=== PATIENT | female | born 1935 | race Asian ===

== ENCOUNTER 2024-06-25 10:27 | Inpatient (IN) | payer MEDICARE, MEDICAID ==
[~2024-06-25] VITALS: Ht 147.3 cm; Wt 45.2 kg
[2024-06-25 11:39] LABS: ALANINE AMINOTRANSFERASE 13 U/L (12-78); ALBUMIN 3.1 G/DL (3.4-5.0); ALBUMIN/GLOBULIN RATIO 0.7 (1.1-1.5); ALKALINE PHOSPHATASE 85 IU/L (46-116); ANION GAP 16 (8-16); ASPARTATE AMINO TRANSFERASE 11 U/L (10-37); BILIRUBIN,TOTAL 0.3 MG/DL (0.1-1.0); BLOOD UREA NITROGEN 78 MG/DL (7-18); BUN/CREATININE RATIO 13.1 (10.0-20.0); CALCIUM 6.5 MG/DL (8.5-10.1); CHLORIDE 104 MMOL/L (99-107); CREATININE 5.95 MG/DL (0.40-0.90); GLUCOSE 172 MG/DL (70-104); POTASSIUM 5.1 MMOL/L (3.5-5.1); SODIUM 136 MMOL/L (135-145); TOTAL CARBON DIOXIDE 16.1 MMOL/L (24-32); TOTAL PROTEIN 7.6 G/DL (6.4-8.2); eCRCL 4 ML/MIN; eGFR 7 ML/MIN
[2024-06-25 11:40] LABS: BASOPHILS % (AUTO) 0.6 % (0-1); EOSINOPHILS # (AUTO) 0.1 X10'3 (0-0.9); HEMOGLOBIN 7.2 g/dl (12.0-16.0); LYMPHOCYTES # (AUTO) 0.8 X10'3 (1.1-4.8); LYMPHOCYTES % (AUTO) 16.7 % (21-51); MEAN CORPUSCULAR HEMOGLOBIN 30.7 PG (27.0-31.0); MEAN CORPUSCULAR HGB CONC 34.7 g/dL (33.0-36.5); MEAN CORPUSCULAR VOLUME 88.5 FL (78-98); MEAN PLATELET VOLUME 8.2 FL (7.4-10.4); MONOCYTES # (AUTO) 0.3 X10'3 (0-0.9); MONOCYTES % (AUTO) 5.7 % (2-12); NEUTROPHILS # (AUTO) 3.7 X10'3 (1.8-7.7); PLATELET COUNT 169 X10'3 (140-440); RED BLOOD COUNT 2.35 X10'6 (4.20-5.60); RED CELL DISTRIBUTION WIDTH 13.1 % (11.5-14.5); WHITE BLOOD COUNT 4.9 X10'3 (4.5-11.0)
[2024-06-25 11:42] LABS: HEMATOCRIT 20.8 % (35.0-45.0)
[2024-06-25 11:56] LABS: BILIRUBIN,URINE NEGATIVE (Neg); CLARITY,URINE CLEAR (Clear); COLOR,URINE YELLOW (Yellow); GLUCOSE, URINE 100 mg/dl (Neg); KETONES,URINE NEGATIVE (Neg); LEUKOCYTE ESTERASE ,URINE NEGATIVE (Neg); NITRITES, URINE NEGATIVE (Neg); OCCULT BLOOD,URINE TRACE-INTACT (Neg); PROTEIN,URINE >=300 mg/dl (Neg); UROBILINOGEN,URINE 0.2 E.U/dL (0.2-1.0)
[2024-06-25 11:59] LABS: UA COLLECTION TYPE OTHER
[2024-06-25 12:15] LABS: BACTERIA,URINE FEW /HPF (Neg); RBC,URINE 0-2 /HPF (0-2); SQUAMOUS EPITHELIAL CELL,UR FEW /LPF (FEW); WBC,URINE 0-4 /HPF (0-4)
[2024-06-25] MEDS ORDERED: magnesium sulf-water 2g/50mL 50 ML IV PRN (14:15)
[2024-06-25] MEDS ORDERED: magnesium sulf-water 4G/100mL 100 ML IV PRN (14:15)
[2024-06-25] MEDS ORDERED: acetaminophen 325mg tablet PO PRN (14:15)
[2024-06-25] MEDS ORDERED: potassium Cl 40MEQ/1/2NS 520ml 520 ML IV PRN (14:15)
[2024-06-25] MEDS ORDERED: potassium Cl 20 mEq SR tablet PO PRN ×2 (14:15)
[2024-06-25 14:42] LABS: HEMOGLOBIN A1C 5.7 % (4.5-6.2)
[2024-06-25 15:45] LABS: PRO BRAIN NATRIURETIC PEPTIDE 1695 PG/ML (0-450)
[2024-06-25] MEDS ORDERED: dextrose 50%-water 50ml dispensing syringe IV PRN ×2 (15:55)
[2024-06-25] MEDS ORDERED: DEXTROSE 15 GM of carb/4 tabs (each vial/BOTTLE has 4 tablets) PO PRN ×2 (15:55)
[2024-06-25] MEDS ORDERED: glucagon, human recombinant 1mg kit SUBCUT PRN (15:55)
[2024-06-25] MEDS: normal saline 1000ml 1,000 ML IV ONE ×2 (15:57→17:21)
[2024-06-25] MEDS ORDERED: PRED5DRO23 INSTILL (16:34)
[2024-06-25] MEDS ORDERED: AMLO5TAB16 PO (16:34)
[2024-06-25] MEDS ORDERED: SODI650T29 PO (16:41)
[2024-06-25] MEDS: INSULIN LISPRO 100 UNIT/ML INSULN.PEN MULTI-DOSE SQ SCH (17:00)
[2024-06-25] MEDS: normal saline 1000ml 1,000 ML IV SCH (17:09)
[2024-06-25] MEDS: amLODIPine 5mg tablet PO ONE (17:19)
[2024-06-25 18:40] LABS: HEMOGLOBIN 7.4 g/dl (12.0-16.0); MEAN CORPUSCULAR HEMOGLOBIN 30.4 PG (27.0-31.0); MEAN CORPUSCULAR HGB CONC 33.8 g/dL (33.0-36.5); MEAN CORPUSCULAR VOLUME 89.8 FL (78-98); MEAN PLATELET VOLUME 7.9 FL (7.4-10.4); PLATELET COUNT 170 X10'3 (140-440); RED BLOOD COUNT 2.45 X10'6 (4.20-5.60)
[2024-06-25 18:47] LABS: ANION GAP 15 (8-16); BLOOD UREA NITROGEN 72 MG/DL (7-18); BUN/CREATININE RATIO 13.5 (10.0-20.0); CALCIUM 6.1 MG/DL (8.5-10.1); CHLORIDE 109 MMOL/L (99-107); CREATININE 5.34 MG/DL (0.40-0.90); GLUCOSE 97 MG/DL (70-104); POTASSIUM 4.7 MMOL/L (3.5-5.1); SODIUM 139 MMOL/L (135-145); TOTAL CARBON DIOXIDE 15.3 MMOL/L (24-32); eCRCL 5 ML/MIN; eGFR 8 ML/MIN
[2024-06-25] MEDS: K and/or MAG REPLACEMENT MC SCH (20:00)
[2024-06-25] MEDS: docusate sod 100mg capsule PO SCH (20:00)
[2024-06-25 21:15] VITALS: BP 163/62; PULSE 92; RESP 15; TEMP 98.7; O2SAT 98
[2024-06-25] MEDS: sodium bicarbonate 650mg tablet PO SCH (22:02)
[2024-06-25] MEDS: prednisoLONE acetate 1% ophth susp 5ml EACHEYE SCH (22:47)
[2024-06-25 23:11] LABS: TOTAL PROTEIN,URINE RANDOM 195.5 MG/DL
[2024-06-26] VITALS (16 sets, daily range): BP systolic 138–176; BP diastolic 47–83; PULSE 68–87; RESP 16–18; TEMP 97.8–98.3; O2SAT 97–99
[2024-06-26 06:30] LABS: BASOPHILS % (AUTO) 0.6 % (0-1); EOSINOPHILS # (AUTO) 0.1 X10'3 (0-0.9); EOSINOPHILS % (AUTO) 2.6 % (0-6); LYMPHOCYTES # (AUTO) 1.3 X10'3 (1.1-4.8); LYMPHOCYTES % (AUTO) 27.7 % (21-51); MEAN CORPUSCULAR HGB CONC 33.9 g/dL (33.0-36.5); MEAN CORPUSCULAR VOLUME 88.6 FL (78-98); MEAN PLATELET VOLUME 8.2 FL (7.4-10.4); MONOCYTES # (AUTO) 0.4 X10'3 (0-0.9); MONOCYTES % (AUTO) 7.9 % (2-12); NEUTROPHILS # (AUTO) 2.9 X10'3 (1.8-7.7); NEUTROPHILS % (AUTO) 61.2 % (42-75); PLATELET COUNT 162 X10'3 (140-440); RED BLOOD COUNT 2.25 X10'6 (4.20-5.60); RED CELL DISTRIBUTION WIDTH 13.3 % (11.5-14.5); WHITE BLOOD COUNT 4.8 X10'3 (4.5-11.0)
[2024-06-26 06:40] LABS: HEMOGLOBIN 6.8 g/dl (12.0-16.0)
[2024-06-26 06:52] LABS: % IRON SATURATION 29 % (11-46); IRON 50 UG/DL (49-151); TOTAL IRON BINDING CAPACITY 173 UG/DL (259-388)
[2024-06-26 06:55] LABS: ALBUMIN 2.7 G/DL (3.4-5.0); ANION GAP 14 (8-16); BLOOD UREA NITROGEN 68 MG/DL (7-18); BUN/CREATININE RATIO 12.3 (10.0-20.0); CHLORIDE 113 MMOL/L (99-107); CREATININE 5.55 MG/DL (0.40-0.90); FERRITIN 86 NG/ML (8-252); GLUCOSE 83 MG/DL (70-104); MAGNESIUM 1.4 MG/DL (1.5-2.4); PHOSPHORUS 6.1 MG/DL (2.3-4.5); POTASSIUM 4.9 MMOL/L (3.5-5.1); SODIUM 144 MMOL/L (135-145); TOTAL CARBON DIOXIDE 17.4 MMOL/L (24-32); eCRCL 4 ML/MIN; eGFR 7 ML/MIN
[2024-06-26] MEDS: ondansetron/PF 4mg/2ml inj IV PRN (10:39)
[2024-06-26] MEDS: enoxaparin 40mg/0.4ml syringe SUBCUT SCH (10:39)
[2024-06-26] MEDS: amLODIPine 5mg tablet PO SCH (10:40)
[2024-06-26] MEDS: magnesium Cl slow-release 64mg tablet PO PRN (12:59)
[2024-06-26] MEDS: sodium bicarbonate 1meq/ml inj 150 ML in dextrose 5%-water 1,000 ML IV SCH (13:21)
[2024-06-26 18:35] LABS: HEMOGLOBIN 11.3 g/dl (12.0-16.0); MEAN CORPUSCULAR HEMOGLOBIN 29.7 PG (27.0-31.0); MEAN CORPUSCULAR HGB CONC 34.2 g/dL (33.0-36.5); MEAN PLATELET VOLUME 8.1 FL (7.4-10.4); PLATELET COUNT 170 X10'3 (140-440); RED BLOOD COUNT 3.79 X10'6 (4.20-5.60); WHITE BLOOD COUNT 5.3 X10'3 (4.5-11.0)
[2024-06-26] MEDS: hydrALAZINE 20mg/ml inj. IV ONE (22:15)
[2024-06-26] MEDS: EPOETIN ALFA-EPBX 20,000 UNIT/ML 1 ML MDV SQ ONE (22:17)
[2024-06-27] VITALS (8 sets, daily range): BP systolic 162–192; BP diastolic 77–87; PULSE 80–105; RESP 16–21; TEMP 98.2–98.7; O2SAT 96–98
[2024-06-27 06:34] LABS: BASOPHILS % (AUTO) 0.5 % (0-1); EOSINOPHILS # (AUTO) 0.2 X10'3 (0-0.9); EOSINOPHILS % (AUTO) 2.1 % (0-6); HEMATOCRIT 32.7 % (35.0-45.0); HEMOGLOBIN 11.6 g/dl (12.0-16.0); LYMPHOCYTES # (AUTO) 1.4 X10'3 (1.1-4.8); LYMPHOCYTES % (AUTO) 16.4 % (21-51); MEAN CORPUSCULAR HEMOGLOBIN 30.3 PG (27.0-31.0); MEAN CORPUSCULAR HGB CONC 35.4 g/dL (33.0-36.5); MEAN CORPUSCULAR VOLUME 85.6 FL (78-98); MEAN PLATELET VOLUME 8.2 FL (7.4-10.4); MONOCYTES # (AUTO) 0.6 X10'3 (0-0.9); NEUTROPHILS # (AUTO) 6.3 X10'3 (1.8-7.7); PLATELET COUNT 180 X10'3 (140-440); RED BLOOD COUNT 3.82 X10'6 (4.20-5.60); RED CELL DISTRIBUTION WIDTH 14.2 % (11.5-14.5); WHITE BLOOD COUNT 8.5 X10'3 (4.5-11.0)
[2024-06-27 06:55] LABS: ALBUMIN 3.1 G/DL (3.4-5.0); ANION GAP 12 (8-16); BLOOD UREA NITROGEN 61 MG/DL (7-18); BUN/CREATININE RATIO 11.7 (10.0-20.0); CALCIUM 6.3 MG/DL (8.5-10.1); CHLORIDE 105 MMOL/L (99-107); CREATININE 5.21 MG/DL (0.40-0.90); FREE T4 (FREE THYROXINE) 1.22 NG/DL (0.73-1.40); GLUCOSE 119 MG/DL (70-104); LACTATE DEHYDROGENASE 294 U/L (81-234); MAGNESIUM 1.4 MG/DL (1.5-2.4); POTASSIUM 4.3 MMOL/L (3.5-5.1); SODIUM 141 MMOL/L (135-145); THYROID STIMULATING HORMONE 2.16 ulU/ml (0.34-4.50); TOTAL CARBON DIOXIDE 24.1 MMOL/L (24-32); eCRCL 5 ML/MIN; eGFR 8 ML/MIN
[2024-06-27] MEDS: enoxaparin 30mg/0.3ml syringe SUBCUT SCH (10:29)
[2024-06-27 12:22] LABS: URIC ACID 6.9 MG/DL (2.5-6.2)
[2024-06-27] MEDS: methylPREDNISolone sod succ 125mg/2ml vial IV ONE (13:24)
[2024-06-27] MEDS: sevelamer carbonate 800mg tablet PO SCH (17:17)
[2024-06-27] MEDS: famotidine 20mg tablet PO SCH (20:34)
[2024-06-28 06:00] VITALS: BP 192/103; PULSE 89; RESP 16; TEMP 97.9; O2SAT 98
[2024-06-28 06:24] LABS: BASOPHILS % (AUTO) 0.2 % (0-1); EOSINOPHILS % (AUTO) 0 % (0-6); HEMATOCRIT 34.8 % (35.0-45.0); HEMOGLOBIN 11.8 g/dl (12.0-16.0); LYMPHOCYTES % (AUTO) 19.2 % (21-51); MEAN CORPUSCULAR HEMOGLOBIN 29.6 PG (27.0-31.0); MEAN CORPUSCULAR HGB CONC 33.9 g/dL (33.0-36.5); MEAN CORPUSCULAR VOLUME 87.3 FL (78-98); MEAN PLATELET VOLUME 8.5 FL (7.4-10.4); MONOCYTES # (AUTO) 0.4 X10'3 (0-0.9); MONOCYTES % (AUTO) 8.1 % (2-12); NEUTROPHILS # (AUTO) 3.7 X10'3 (1.8-7.7); NEUTROPHILS % (AUTO) 72.5 % (42-75); PLATELET COUNT 171 X10'3 (140-440); RED BLOOD COUNT 3.99 X10'6 (4.20-5.60); RED CELL DISTRIBUTION WIDTH 13.8 % (11.5-14.5); WHITE BLOOD COUNT 5.1 X10'3 (4.5-11.0)
[2024-06-28 06:59] LABS: ALBUMIN 2.6 G/DL (3.4-5.0); ANION GAP 13 (8-16); BLOOD UREA NITROGEN 68 MG/DL (7-18); BUN/CREATININE RATIO 12.3 (10.0-20.0); CALCIUM 6.1 MG/DL (8.5-10.1); CHLORIDE 105 MMOL/L (99-107); CREATININE 5.52 MG/DL (0.40-0.90); GLUCOSE 125 MG/DL (70-104); MAGNESIUM 1.5 MG/DL (1.5-2.4); POTASSIUM 4.4 MMOL/L (3.5-5.1); SODIUM 140 MMOL/L (135-145); TOTAL CARBON DIOXIDE 22.4 MMOL/L (24-32); eCRCL 4 ML/MIN; eGFR 7 ML/MIN
[2024-06-28 07:09] LABS: HBSAG SCREEN Negative (Negative)
[2024-06-28] MEDS ORDERED: cloNIDine 0.1 mg tablet PO SCH (08:00)
[2024-06-28 08:09] LABS: ANTISTREPTOLYSIN O AB <20.0 IU/mL (0.0-200.0); COMPLEMENT C3, SERUM 109 mg/dL (82-167); COMPLEMENT C4, SERUM 26 mg/dL (12-38)
[2024-06-28] MEDS: prednisone 10mg tablet PO SCH (08:23)
[2024-06-28] MEDS: sodium bicarbonate 650mg tablet PO SCH (08:23)
[2024-06-28] MEDS: hyDRALAzine 10mg tablet PO SCH (08:24)
[2024-06-28] MEDS: metoprolol tartrate 25mg tablet PO SCH (08:24)
[2024-06-28 09:00] VITALS: RESP 16; O2SAT 98
[2024-06-28 10:00] VITALS: BP 159/78; PULSE 78; RESP 16; TEMP 98.4; O2SAT 99
[2024-06-28] MEDS ORDERED: LORazepam 0.5 MG tablet PO PRN (12:50)
[2024-06-28] MEDS ORDERED: hyoscyamine 0.125mg TAB.SUBL SL PRN (12:50)
[2024-06-28] MEDS ORDERED: morphine oral 20mg/ml (conc. morphine) 1ml oral syringe PO PRN (12:50)
[2024-06-28 18:00] VITALS: BP 162/73; PULSE 78; RESP 16; TEMP 97.8; O2SAT 99
[2024-06-29 06:55] VITALS: BP 155/69; PULSE 75; RESP 16; TEMP 97.9; O2SAT 97
[2024-06-29 08:00] VITALS: RESP 18
[2024-06-29 10:14] VITALS: BP 155/76; PULSE 79; RESP 13; TEMP 98.7; O2SAT 96
[2024-06-29 18:00] VITALS: BP 171/85; PULSE 81; RESP 20; TEMP 97.6; O2SAT 99
[2024-06-29] MEDS: morphine 10mg/0.5ml (conc. morphine) oral syringe PO PRN (20:02)
[2024-06-29 22:00] VITALS: BP 179/88; PULSE 78; RESP 16; TEMP 98; O2SAT 96
[2024-06-30 06:00] VITALS: BP 183/96; PULSE 89; RESP 16; TEMP 97.9; O2SAT 94
[2024-06-30] MEDS: proCHLORperazine 10 MG/2 ml inj IM ONE (11:30)
[2024-06-30 15:08] LABS: A/G RATIO 0.8 (0.7-1.7); ALPHA-1-GLOBULIN 0.3 g/dL (0.0-0.4); GAMMA GLOBULIN 1.7 g/dL (0.4-1.8); GLOBULIN, TOTAL 3.9 g/dL (2.2-3.9); M-SPIKE Not Observed g/dL (Not Observed); PROTEIN, TOTAL, SERUM 6.9 g/dL (6.0-8.5)
[2024-07-04 13:10] LABS: ANTINUCLEAR ANTIBODIES Negative (Negative)
== END 2024-06-30 11:45 | disposition hospice, home (50) | DRG 682 ==
LOC: ER 10:28 → ED HOLD 14:17 → ORTHO 4S 21:10
PROVIDERS: ADMIT Family Medicine; ATTEND Family Medicine
PROC: 30233N1 Transfusion of Nonautologous Red Blood Cells into Peripheral Vein, Percutaneous Approach (ICD-10-PCS; principal; 2024-06-26)
DX: N17.9 Acute kidney failure, unspecified (principal); D61.89 Other specified aplastic anemias and other bone marrow failure syndromes; I12.0 Hypertensive chronic kidney disease with stage 5 chronic kidney disease or end stage renal disease; C90.00 Multiple myeloma not having achieved remission; E87.20 Acidosis, unspecified; N18.6 End stage renal disease; E86.0 Dehydration; E83.51 Hypocalcemia; E11.22 Type 2 diabetes mellitus with diabetic chronic kidney disease; F17.200 Nicotine dependence, unspecified, uncomplicated; R80.9 Proteinuria, unspecified; E83.39 Other disorders of phosphorus metabolism; M10.9 Gout, unspecified; I44.4 Left anterior fascicular block; D63.1 Anemia in chronic kidney disease
CPT/HCPCS: 36415; 36430; 70450; 71045; 73521; 76770; 80048; 80053; 81001; 82570; 82728; 82948; 83036; 83540; 83550; 83615; 83735; 83880; 83970; 84100; 84133; 84155; 84156; 84165; 84300; 84439; 84443; 84466; 84484; 84540; 84550; 85025; 85027; 85651; 86038; 86060; 86160; 86885; 86900; 86901; 86920; 87081; 87340; 87502; 87503; 87811; 92508; 92616; 93005; 93306; 93971; 97161; 97530; 99285; G0378; J0360; J0780; J1650; J1815; J2405; J2919; J3490; J7030; J7040; J7070; J7512; P9016; Q4081